=== PATIENT | male | born 1965 | race African-American/Black ===

== ENCOUNTER 2022-08-14 11:07 | Emergency (ER) | payer OTHER ==
[2022-08-14 13:39] LABS: BASOPHIL 0.3 % (0-2); EOSINOPHIL 4.4 % (0-5); HCT 39.7 % (42.0-52.0); HGB 13.2 g/dl (13.2-18.0); LYMPHOCYTE 19.5 % (15-48); MCH 29.1 pg (25.0-31.0); MCHC 33.2 g/dL (32.0-36.0); MCV 87.4 fL (78.0-100.0); MONOCYTE 6.9 % (0-12); MPV 9.2 fL (6.0-9.5); NEUTROPHIL 68.6 % (41-80); NRBC 0; PLT 360 K/uL (150-400); RBC 4.54 M/uL (4.70-6.00); RDW 12.9 % (11.5-14.0); WBC 7.5 K/uL (4.0-10.5)
[2022-08-14 13:40] LABS: BILIRUBIN NEGATIVE (NEGATIVE); BLOOD NEGATIVE Ery/uL (NEGATIVE); CLARITY CLEAR (CLEAR); COLOR YELLOW (YELLOW); GLUCOSE (U) NORMAL (NORMAL); LEUKOCYTES NEGATIVE Leu/uL (NEGATIVE); NITRITE NEGATIVE (NEGATIVE); PROTEIN NEGATIVE (NEGATIVE); UROBILINOGEN 0.2 mg/dL (0.2-1.0)
[2022-08-14 13:45] LABS: SQUAMOUS EPITHELIAL CELLS RARE
[2022-08-14 14:02] LABS: ALBUMIN 3.3 g/dL (3.4-5.0); BILIRUBIN - TOTAL 0.2 mg/dL (0.2-1.0); BUN/CREAT RATIO (CALC) 23.3 RATIO; CREATININE 0.73 mg/dL (0.67-1.17); GLOBULIN (CALCULATION) 5.5 g/dL; POTASSIUM 3.7 mmol/L (3.5-5.1); TOTAL PROTEIN 8.8 g/dL (6.4-8.2)
== END 2022-08-14 21:57 | disposition other institution (70) ==
LOC: FER 11:07
PROVIDERS: Physician Assistant
DX: N50.1 Vascular disorders of male genital organs (principal); R39.198 Other difficulties with micturition; F17.210 Nicotine dependence, cigarettes, uncomplicated
CPT/HCPCS: 36415; 76870; 80053; 81001; 85025